=== PATIENT | female | born 1995 | race Caucasian/White ===

== ENCOUNTER 2016-12-27 20:59 | Emergency (ER) | payer BC ==
[~2016-12-27] VITALS: Ht 172.7 cm; Wt 52.2 kg
[2016-12-27] MEDS ORDERED: GABA-532 PO (21:22)
[2016-12-27] MEDS ORDERED: PHENAZOPYRIDINE HCL 100 MG TABLET ONE (21:27)
[2016-12-27] MEDS ORDERED: EPINEPHRINE 1 MG/1 ML AMP SQ ONE (21:45)
[2016-12-27] MEDS ORDERED: FAMOTIDINE 20 MG TABLET PO ONE (21:45)
[2016-12-27] MEDS ORDERED: predniSONE 50 MG TABLET PO ONE (21:45)
[2016-12-27] MEDS ORDERED: ONDANSETRON ODT 4 MG TAB.RAPDIS SL ONE (21:45)
[2016-12-27] MEDS ORDERED: ONDANSETRON ODT 4 MG TAB.RAPDIS ONE (21:54)
[2016-12-27] MEDS ORDERED: predniSONE 50 MG TABLET ONE (21:55)
[2016-12-27] MEDS ORDERED: EPINEPHRINE 1 MG/1 ML AMP ONE (21:55)
[2016-12-27] MEDS ORDERED: FAMOTIDINE 20 MG TABLET ONE (21:55)
--- NOTE | 2016-12-27 22:26 | NUR ---
Patient discharged to home in stable conditon. Written and verbal after care instructions given. Patient verbalizes understanding of instructions.
[2016-12-27 22:27] VITALS: BP 107/62
== END 2016-12-27 22:28 | disposition home or self-care (01) ==
LOC: ER 21:00
DX: T78.1XXA Other adverse food reactions, not elsewhere classified, initial encounter (principal); X58.XXXA Exposure to other specified factors, initial encounter
CPT/HCPCS: 96372; 99284; A4663; J0171; J7512; Q0162